=== PATIENT | female | born 1965 | race Caucasian/White ===

== ENCOUNTER → 2018-06-12 13:15 | Outpatient (CLI) | payer BC, SELFPAY ==
--- NOTE | 2018-06-12 13:22 | XR_ITS ---
XR wrist LT min 3V HISTORY ITS.REASON: LT WRIST PAIN ORDERING PHYSICIAN: Geovanna Cadena PATIENT AGE: 52 years Comparison: None FINDINGS: No fracture or dislocation. No lytic or blastic change. There is normal mineralization.. The joint spaces are well-preserved. No significant degenerative/arthritic changes. No erosive changes evident.. IMPRESSION: Negative wrist
== END ==
PROVIDERS: PCP Nurse Practitioner; Visit Provider Nurse Practitioner
DX: M25.532 Pain in left wrist (principal)
CPT/HCPCS: 73110

== ENCOUNTER → 2019-02-05 08:47 | Outpatient (CLI) | payer BC, SELFPAY ==
--- NOTE | 2019-02-05 08:54 | FL_ITS ---
FL upper GI w air HISTORY: ITS.REASON: ESOPHAGEAL DYSPHAGIA ORDERING PHYSICIAN: Craig Rivers MD PATIENT AGE: 53 years Comparison: None FINDINGS: There is a small hiatal hernia with a constricting Schatzki's ring which did not permit the passage of a 12.5 mm barium tablet. The tablet eventually passed/dissolved with some delay. No annular constricting lesions. No mucosal abnormalities. The stomach and duodenum have an unremarkable appearance. No ulcer or mass evident. IMPRESSION: Small hiatal hernia with constricting Schatzki's ring otherwise negative upper GI. FLUOROSCOPY TIME : 3 minutes and 15 seconds.
== END ==
PROVIDERS: PCP Family Medicine; Visit Provider Family Medicine
DX: R13.10 Dysphagia, unspecified (principal)
CPT/HCPCS: 74247

== ENCOUNTER → 2020-06-05 10:04 | Outpatient (CLI) | payer BC, SELFPAY ==
[2020-06-05 11:30] LABS: Coronavirus 19 IgG Antibody Negative (Negative); Coronavirus 19 IgM Antibody Negative (Negative)
== END ==
PROVIDERS: Visit Provider Internal Medicine Gastroenterology
DX: Z01.818 Encounter for other preprocedural examination (principal)
CPT/HCPCS: 36415; 86328

== ENCOUNTER 2020-06-06 12:22 | Day surgery (SDC) | payer BC, SELFPAY ==
[2020-05-30 14:26] VITALS: BMI 34.3
[2020-06-06 12:56] VITALS: BP 128/90; PULSE 90; RESP 18; TEMP 36.2; O2SAT 98
[2020-06-06 13:39] VITALS: O2SAT 97
--- NOTE | 2020-06-06 13:45 | P.PN_ITS ---
[facility] Anesthesia Checklist - Patient Identification Patient Identification: Arm Band - Structural Data Admitted From: Home Planned Operative Procedure/s: egd Consent for Planned Operative Procedure(s) Verified: Yes Verified Documents: Surgical Consent, History and Physical - NPO Status Verified Time NPO: 00:00 - Additional verifications Anesthesia Reactions: No - Airway Assessment C-Spine Mobility Assessed: Yes (mp2) TMJ Mobility Assessed: Yes Dentition: Good Dentition - Neurological Assessment Level of Consciousness: Awake, Alert - Anesthesia Plan Anesthesia Risk discussed: Yes Anesthesia Plan: Verified ASA Class: II Anesthesia Type: MAC [facility] History I have reviewed the patient's past medical history: Yes Medical History: Denies:: Cancer, Diabetes Mellitus Type 1, Diabetes Mellitus Type 2, Internal Pacemaker, Lung Disease, MRSA, Seizures *Have you ever received a pneumonia vaccine?: No *Have you received a flu vaccine this season?: Yes Other Medical History: Reports: Other (dysphagia) Anesthesia experience/problems:: nac Laterality Cases: Bilateral: Tonsillectomy Other Surgeries: Yes: Appendectomy, Cholecystectomy, Hernia Repair, Hysterectomy-Partial. No: Pacemaker Amputation: No Fractures: No - *Social History Last grade of school completed: High school graduate Smoking Status: Current every day smoker Tobacco Type: cigarettes # Packs/Day (cigarettes): 1 Alcohol Intake: never Substance Use Type: denies use *Occupational Status:: employed Housing: house Household Members: spouse *Travel in the last 8 weeks: None Family Hx:: Unable to obtain
--- NOTE | 2020-06-06 13:58 | P.PCN_ITS ---
[facility] Procedure Note Procedure Note:: Upper Endoscopy Procedure Report: Esophagogastroduodenoscopy with cold biopsies and TTS balloon dilation Endoscopost: Zach Funez II, MD Referring Physician: Craig Rivers MD Date of Procedure: June 06, 2020 Equipment: Olympus GIF 180 standard upper endoscope Sedation: MAC sedation Indications: Mrs. Malik is a 54-year-old female with recurrent dysphagia. The patient did undergo EGD on February 16, 2019 and had a Schatzki's ring dilated to 20 mm. The patient did very well for just over a year and then 2 months ago had recurrent symptoms. She reports no heartburn or reflux. She does report the dysphagia to primarily solids such as breads and meats. She did have an upper GI series/barium swallow on February 05, 2019 and this did show a Schatzki's ring that did not permit passage of a 12.5 mm barium tablet. Procedure: Prior to the procedure, a history and physical exam was performed, and patient's medications and allergies were reviewed. The risks, benefits and alternatives of the sedation and procedure were discussed with the patient. All questions were answered and informed consent was obtained. The patient was brought to the procedure room. Patient identification and proposed procedure were verified by the physician and the nurse. The patient was placed in a left lateral decubitus position and the scope was passed under direct vision. Throughout the procedure, the patient's blood pressure, pulse, and oxygen saturations were monitored continuously. The upper GI endoscopy was accomplished without difficulty. The patient tolerated the procedure well. Findings: The scope was passed directly into the upper esophagus and advanced to the third portion of the duodenum. The post bulbar duodenum and duodenal bulb were normal with normal mucosa and conniventes. There was some peptic duodenitis of the duodenal bulb. The scope was withdrawn through a normal pylorus into the stomach. There was linear reactive gastropathy of the antrum with a healing prepyloric gastric ulcer with some crater. There was mild reactive changes in the antrum and body. There was mild chronic gastritis of the body and fundus. Upon retroflexion there was a 2 cm hiatal hernia. 2 biopsies were taken in the antrum and along the lesser curvature for histology to rule out gastritis and/or H pylori. The scope was then withdrawn into the esophagus. There was a distal Schatzki's ring with some evidence of grade B reflux esophagitis. Biopsies were taken at the GE junction. The Schatzki's ring was dilated to 20 mm with a TTS hydrostatic balloon with shattering of the Schatzki's ring. The entire esophagus was dilated. The remainder of the esophageal mucosa was normal. Impression: 1. Schatzki's ring dilated to 20 mm with a small 2 cm hiatal hernia 2. Grade B reflux esophagitis 3. Chronic gastritis with mild peptic duodenitis?rule out H. pylori Plan: I will follow-up the biopsies. I would encourage omeprazole for at least 3 months maintenance therapy.
[2020-06-06 14:00] VITALS: BP 120/83; PULSE 98; RESP 18; TEMP 36.4; O2SAT 92
[2020-06-06 14:10] VITALS: BP 125/82; PULSE 77; RESP 18; TEMP 36.4; O2SAT 95
[2020-06-06 14:20] VITALS: BP 136/72; PULSE 79; RESP 18; TEMP 36.4; O2SAT 98
[2020-06-06 14:30] VITALS: BP 134/89; PULSE 76; RESP 18; TEMP 36.4; O2SAT 99
== END 2020-06-06 14:30 | disposition home or self-care (01) ==
LOC: OUTP 12:23
PROVIDERS: PCP Family Medicine; Visit Provider Internal Medicine Gastroenterology
PROC: 0DJ08ZZ Inspection of Upper Intestinal Tract, Via Natural or Artificial Opening Endoscopic (ICD-10-PCS; CPT 43235; principal; 2020-06-06 13:30)
DX: K22.2 Esophageal obstruction (principal); K44.9 Diaphragmatic hernia without obstruction or gangrene; K21.0 Gastro-esophageal reflux disease with esophagitis; K29.50 Unspecified chronic gastritis without bleeding; K29.80 Duodenitis without bleeding; Z87.19 Personal history of other diseases of the digestive system; Z90.89 Acquired absence of other organs; Z90.49 Acquired absence of other specified parts of digestive tract; Z90.711 Acquired absence of uterus with remaining cervical stump; Z72.0 Tobacco use; M19.90 Unspecified osteoarthritis, unspecified site; Z88.8 Allergy status to other drugs, medicaments and biological substances
CPT/HCPCS: 43239; 43249; C1726

== ENCOUNTER → 2020-07-10 10:05 | Outpatient (CLI) | payer BC, SELFPAY ==
[2020-07-10 12:11] LABS: Coronavirus 19 IgG Antibody Negative (Negative); Coronavirus 19 IgM Antibody Negative (Negative)
== END ==
PROVIDERS: Visit Provider Internal Medicine Gastroenterology
DX: Z03.818 Encounter for observation for suspected exposure to other biological agents ruled out (principal)
CPT/HCPCS: 36415; 86328

== ENCOUNTER 2020-07-11 10:59 | Day surgery (SDC) | payer BC, SELFPAY ==
[2020-07-07 09:39] VITALS: BMI 34.3
[2020-07-11 11:50] VITALS: BP 133/87; PULSE 81; RESP 18; TEMP 36.4; O2SAT 98
[2020-07-11 12:34] VITALS: O2SAT 97
--- NOTE | 2020-07-11 12:56 | HMH.PROC ---
[facility] Procedure Note Procedure Note:: Colonoscopy Procedure Report: Colonoscopy with cold snare polypectomy Endoscopist: Zach Funez II, MD Referring physician: Craig Rivers MD Date of Procedure: July 11, 2020 Equipment: Olympus 180 variable stiffness pediatric colonoscope Sedation: MAC sedation Indication: Mrs. Malik is a 54-year-old female here for diagnostic colonoscopy. She has had left upper abdominal pain and discomfort. She did have surgery for a hernia. She has had some chronic constipation. Her mother and maternal grandmother had colon cancer. She reports no rectal bleeding or weight loss. She did have a colonoscopy in the last 1 to 2 years (Dr. Rashaun Matthew) and had colon polyps. The patient did have a prior EGD with ak on June 06, 2020 for her dysphagia with dilation of a Schatzki's ring. Procedure: Prior to the procedure, a history and physical exam was performed, and patient's medications and allergies were reviewed. The risks, benefits and alternatives of the sedation and procedure were discussed with the patient. All questions were answered and informed consent was obtained. The patient was brought to the procedure room. Patient identification and proposed procedure were verified by the physician and the nurse. The patient was placed in a left lateral decubitus position and the scope was passed under direct vision. Throughout the procedure, the patient's blood pressure, pulse, and oxygen saturations were monitored continuously. The colonoscopy was accomplished without difficulty. The patient tolerated the procedure well. Findings: On digital rectal examination there was normal rectal tone. There were no external hemorrhoids. The colonoscope was introduced through the anal canal to the rectum and advanced to the cecum. The ileocecal valve and appendiceal orifice were identified. The scope was advanced a short distance into the ileum which appeared grossly normal. The scope was then withdrawn into the colon. There were 3 diminutive polyps in the cecum (2, 4 and 4 mm) that were removed via cold snare polypectomy. The remainder of the ascending and transverse colon were normal. There were scattered diverticuli throughout the descending and sigmoid colon (LEFT colon). The rectum itself was normal. Upon retroflexion within the rectum there were grade 2 internal hemorrhoids. The preparation was excellent throughout with [place] Preparation Score of 9. The cecal time was 12 minutes. Impression: 1. Diminutive cecal colon polyps x3 2. Extensive left-sided diverticulosis 3. Grade 2 internal hemorrhoids Plan: I will follow up the polyp pathology and recommend repeat colonoscopy again in 5 years based upon the patient's family history as well as the present polyp histology. I would encourage dietary measures and a fiber bowel regimen on a long-term daily maintenance basis.
[2020-07-11 13:00] VITALS: BP 100/70; PULSE 93; RESP 18; TEMP 36.4; O2SAT 95
[2020-07-11 13:10] VITALS: BP 118/79; PULSE 88; RESP 18; O2SAT 95
[2020-07-11 13:20] VITALS: BP 137/84; PULSE 74; RESP 18; O2SAT 97
[2020-07-11 13:30] VITALS: BP 139/80; PULSE 78; RESP 18; O2SAT 97
--- NOTE | 2020-07-11 13:36 | HMH.ANESCL ---
[facility] Anesthesia Checklist - Patient Identification Patient Identification: Arm Band, Verbal (Name & ) - Structural Data Admitted From: Home Planned Operative Procedure/s: Colonoscopy Consent for Planned Operative Procedure(s) Verified: Yes Verified Documents: Surgical Consent, History and Physical - NPO Status Verified Time NPO: 00:00 - Chart Verification Results Verified: None - Additional verifications Anesthesia Reactions: No - Airway Assessment C-Spine Mobility Assessed: Yes TMJ Mobility Assessed: Yes Dentition: Good Dentition - Neurological Assessment Level of Consciousness: Awake, Alert, Appropriate, Follows Commands Hx Seizures: No Numbness or tingling in extremities: No - Anesthesia Plan Anesthesia Risk discussed: Yes Anesthesia Plan: Verified ASA Class: II Anesthesia Type: MAC [facility] History I have reviewed the patient's past medical history: Yes Medical History: Denies:: Cancer, Diabetes Mellitus Type 1, Diabetes Mellitus Type 2, Internal Pacemaker, Lung Disease, MRSA, Seizures *Have you ever received a pneumonia vaccine?: No *Have you received a flu vaccine this season?: Yes Other Medical History: Reports: Other (dysphagia) Comment:: obesity Anesthesia experience/problems:: None Laterality Cases: Bilateral: Tonsillectomy Other Surgeries: Yes: Appendectomy, Cholecystectomy, Hernia Repair, Hysterectomy-Partial. No: Pacemaker Amputation: No Fractures: No - *Social History Smoking Status: Current every day smoker Tobacco Type: cigarettes # Packs/Day (cigarettes): 1 Alcohol Intake: never Substance Use Type: denies use *Occupational Status:: employed Housing: house Household Members: spouse *Travel in the last 8 weeks: None Family Hx:: Unable to obtain
== END 2020-07-11 13:30 | disposition home or self-care (01) ==
LOC: OUTP 11:00
PROVIDERS: PCP Family Medicine; Visit Provider Internal Medicine Gastroenterology
PROC: 0DJD8ZZ Inspection of Lower Intestinal Tract, Via Natural or Artificial Opening Endoscopic (ICD-10-PCS; CPT 45378; principal; 2020-07-11 12:00)
DX: Z80.0 Family history of malignant neoplasm of digestive organs (principal); Z86.010 Personal history of colon polyps; Z87.19 Personal history of other diseases of the digestive system; K63.5 Polyp of colon; K57.30 Diverticulosis of large intestine without perforation or abscess without bleeding; K64.1 Second degree hemorrhoids; Z90.49 Acquired absence of other specified parts of digestive tract; Z90.89 Acquired absence of other organs; Z72.0 Tobacco use; Z90.711 Acquired absence of uterus with remaining cervical stump; Z88.7 Allergy status to serum and vaccine; Z91.040 Latex allergy status
CPT/HCPCS: 45385

== ENCOUNTER → 2020-09-22 08:31 | Outpatient (POV) | payer BC, SELFPAY | PROVIDERS: Visit Provider Nurse Practitioner Family | DX: Z00.00 Encounter for general adult medical examination without abnormal findings (principal) ==

== ENCOUNTER → 2021-03-18 14:24 | Outpatient (CLI) | payer BC, SELFPAY ==
--- NOTE | 2021-03-18 15:10 | ECG_ITS ---
APPROVED REPORT Exam: Resting ECG HR:85 bpm ECG Measurements Heart Rate 85 AXES AL 136 P 48 QRSd 82 QRS 15 QT 360 T 34 QTc 428 Conclusion Normal sinus rhythm Late R wave progression Abnormal ECG Electronically signed by : Edmund Herrera, 03/18/2021 16:55:16
== END ==
PROVIDERS: PCP Nurse Practitioner; Visit Provider Nurse Practitioner
DX: Z01.818 Encounter for other preprocedural examination (principal)
CPT/HCPCS: 93005

== ENCOUNTER → 2021-04-06 10:08 | Outpatient (CLI) | payer BC, SELFPAY | PROVIDERS: PCP Family Medicine; Visit Provider Nurse Practitioner | DX: Z20.822 Contact with and (suspected) exposure to COVID-19 (principal) | CPT/HCPCS: U0003 ==

== ENCOUNTER → 2022-03-10 16:29 | Outpatient (CLI) | payer BC, SELFPAY ==
--- NOTE | 2022-03-10 16:41 | ECG_ITS ---
APPROVED REPORT Exam: Resting ECG HR:91 bpm ECG Measurements Heart Rate 91 AXES WV 139 P 46 QRSd 82 QRS 27 QT 347 T 52 QTc 396 Conclusion SINUS RHYTHM LOW QRS VOLTAGE IN PRECORDIAL LEADS [QRS DEFLECTION < 1.0 mV IN CHEST LEADS] Late R wave progression BORDERLINE ECG UNCONFIRMED REPORT Electronically signed by : Edmund Herrera MD 03/11/2022 07:59:50
== END ==
PROVIDERS: PCP Family Medicine; Visit Provider Nurse Practitioner
DX: Z01.810 Encounter for preprocedural cardiovascular examination (principal)
CPT/HCPCS: 93005